=== PATIENT | male | born 1965 | race Caucasian/White ===

== ENCOUNTER 2017-05-12 15:17 | Emergency (ER) | payer SELFPAY ==
[~2017-05-12 15:17] MED LIST: ZITH250T PO
[2017-05-12] MEDS ORDERED: MORPHINE SULFATE 4 MG/ML INJ ONE (15:20)
[2017-05-12 15:24] VITALS: O2SAT 97
[2017-05-12 15:25] VITALS: O2SAT 97
[2017-05-12 15:39] LABS: AUTOMATED NEUTROPHIL # 9.4 TH/MM3 (1.8-7.7); BASOPHIL # 0.1 TH/MM3 (0-0.2); BASOPHIL % 0.5 % (0.0-2.0); EOSINOPHIL # 0.2 TH/MM3 (0-0.4); EOSINOPHIL % 1.6 % (0.0-4.0); HEMATOCRIT 42.6 % (39.0-51.0); HEMOGLOBIN 14.5 GM/DL (13.0-17.0); LYMPH % 13.6 % (9.0-44.0); LYMPHOCYTE # 1.7 TH/MM3 (1.0-4.8); MEAN CELL VOLUME 87.9 FL (80.0-100.0); MEAN CORPUSCULAR HEMOGLOBIN 29.9 PG (27.0-34.0); MEAN PLATELET VOLUME 6.9 FL (7.0-11.0); MONO % 8.8 % (0.0-8.0); MONOCYTE # 1.1 TH/MM3 (0-0.9); NEUT % 75.5 % (16.0-70.0); PLATELET COUNT 461 TH/MM3 (150-450); RED BLOOD COUNT 4.84 MIL/MM3 (4.50-5.90); RED CELL DISTRIBUTION WIDTH 14.1 % (11.6-17.2); WHITE BLOOD COUNT 12.4 TH/MM3 (4.0-11.0)
[2017-05-12] MEDS ORDERED: IOHEXOL 350 MG/ML 10 ML VIAL (for RAD DIAG) IVCONTRAST ONE (15:43)
--- NOTE | 2017-05-12 15:57 | RADRPT ---
EXAM DATE/TIME: 05/12/2017 15:31 [facility] COMPARISON: CHEST SINGLE AP, September 01, 2015, 13:25. INDICATIONS : Fell from ladder, Trauma alert MEDICAL HISTORY : None. SURGICAL HISTORY : None. ENCOUNTER: Initial ACUITY: 1 day PAIN SCORE: Non-responsive. LOCATION: Bilateral chest FINDINGS: The heart is normal. The pulmonary vascular pattern is normal. The lungs are clear. Old fractures of the right rib cage are stable. CONCLUSION: No acute cardiopulmonary disease. Dylan Joseph MD on May 12, 2017 at 15:54 Board Certified Radiologist. This report was verified electronically.
[2017-05-12] MEDS ORDERED: MORPHINE SULFATE 2 MG/ML INJ IV PUSH ONE ×2 (16:00)
[2017-05-12] MEDS ORDERED: MORPHINE SULFATE 4 MG/ML INJ IV PUSH ONE (16:00)
--- NOTE | 2017-05-12 16:17 | RADRPT ---
EXAM DATE/TIME: 05/12/2017 15:37 [facility] COMPARISON: CT THORAX W CONTRAST, August 18, 2015, 21:27. INDICATIONS : Trauma alert, fall from ladder. IV CONTRAST: 94 cc Omnipaque 350 (iohexol) IV ; Cumulative dose for multiple exams. RADIATION DOSE: 5.7 CTDIvol (mGy) ; Combined studies MEDICAL HISTORY : Non-responsive. SURGICAL HISTORY : Non-responsive. ENCOUNTER: Initial ACUITY: 1 day PAIN SCALE: Non-responsive LOCATION: Bilateral chest TECHNIQUE: Volumetric scanning of the chest was performed. Using automated exposure control and adjustment of t he mA and/or kV according to patient size, radiation dose was kept as low as reasonably achievable to obtain optimal diagnostic quality images. DICOM format image data is available electronically for review and comparison. Follow-up recommendations for detected pulmonary nodules are based at a minimum on nodule size and pa tient risk factors according to Fleischner Society Guidelines. FINDINGS: LUNGS: There is no consolidation or pneumothorax. No concerning pulmonary nodule is visualized. PLEURA: There is no pleural thickening or pleural effusion. MEDIASTINUM: The heart and great vessels demonstrate no acute abnormality. There is no mediastinal or hilar lymph adenopathy. AXILLAE: Within normal limits. No lymphadenopathy. SKELETAL: There are degenerative changes in the sternoclavicular joint. There old rib fractures on the right. I don't see displaced acute rib fracture. MISCELLANEOUS: The visualized upper abdominal organs demonstrate no acute abnormality. CONCLUSION: Negative for acute injury. Fili Gonzalez MD FACR on May 12, 2017 at 16:13 Board Certified Radiologist. This report was verified electronically.
--- NOTE | 2017-05-12 16:17 | RADRPT ---
EXAM DATE/TIME: 05/12/2017 15:33 [facility] COMPARISON: No previous studies available for comparison. INDICATIONS : Trauma alert, fall from ladder. RADIATION DOSE: 56.35 CTDIvol (mGy) MEDICAL HISTORY : Non-responsive. SURGICAL HISTORY : Non-responsive. ENCOUNTER: Initial ACUITY: 1 day PAIN SCALE: Non-responsive LOCATION: cranial TECHNIQUE: Multiple contiguous axial images were obtained of the head. Using automated exposure control and adj ustment of the mA and/or kV according to patient size, radiation dose was kept as low as reasonably a chievable to obtain optimal diagnostic quality images. DICOM format image data is available electro nically for review and comparison. FINDINGS: CEREBRUM: The ventricles are normal for age. No evidence of midline shift, mass lesion, hemorrhage or acute in farction. No extra-axial fluid collections are seen. POSTERIOR FOSSA: The cerebellum and brainstem are intact. The 4th ventricle is midline. The cerebellopontine angle i s unremarkable. EXTRACRANIAL: The visualized portion of the orbits is intact. Mild mucosal disease in the left maxillary sinus SKULL: The calvaria is intact. No evidence of skull fracture. CONCLUSION: No acute intracranial injury. Solitario Ornelas MD on May 12, 2017 at 15:52 Board Certified Radiologist. This report was verified electronically.
--- NOTE | 2017-05-12 16:18 | RADRPT ---
EXAM DATE/TIME: 05/12/2017 15:39 [facility] COMPARISON: CT ABDOMEN & PELVIS W CONTRAST, August 18, 2015, 21:27. INDICATIONS : Trauma alert, fall from ladder. IV CONTRAST: 94 cc Omnipaque 350 (iohexol) IV ; Cumulative dose for multiple exams. ORAL CONTRAST: No oral contrast ingested. RADIATION DOSE: 5.7 CTDIvol (mGy) ; Combined studies - Thorax/Abdomen/Pelvis MEDICAL HISTORY : Non-responsive. SURGICAL HISTORY : Non-responsive. ENCOUNTER: Initial ACUITY: 1 day PAIN SCALE: Non-responsive LOCATION: chest TECHNIQUE: Volumetric scanning of the abdomen and pelvis was performed. Using automated exposure control and ad justment of the mA and/or kV according to patient size, radiation dose was kept as low as reasonably achievable to obtain optimal diagnostic quality images. DICOM format image data is available electro nically for review and comparison. FINDINGS: LOWER LUNGS: The visualized lower lungs are clear. LIVER: Homogeneous density without lesion. There is no dilation of the biliary tree. No calcified gallston es. SPLEEN: Normal size without lesion. PANCREAS: Within normal limits. KIDNEYS: Normal in size and shape. There is no mass, stone or hydronephrosis. ADRENAL GLANDS: Within normal limits. VASCULAR: There is no aortic aneurysm. BOWEL/MESENTERY: The stomach, small bowel, and colon demonstrate no acute abnormality. There is no free intraperitone al air or fluid. ABDOMINAL WALL: Within normal limits. RETROPERITONEUM: There is no lymphadenopathy. BLADDER: No wall thickening or mass. REPRODUCTIVE: Within normal limits. INGUINAL: There is no lymphadenopathy or hernia. MUSCULOSKELETAL: . 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 No displaced fracture. CONCLUSION: Negative for acute rheumatic injury. Fili Gonzalez MD FACR on May 12, 2017 at 16:15 Board Certified Radiologist. This report was verified electronically.
[2017-05-12 16:21] VITALS: BP 172/94; PULSE 105; RESP 15; O2SAT 100
[2017-05-12] MEDS ORDERED: LIDOCAINE HCL 1% PF 30 ML VIAL INFIL ONE (16:30)
--- NOTE | 2017-05-12 16:37 | RADRPT ---
EXAM DATE/TIME: 05/12/2017 15:35 [facility] COMPARISON: No previous studies available for comparison. INDICATIONS : Trauma alert, fall from ladder. RADIATION DOSE: 31.12 CTDIvol (mGy) MEDICAL HISTORY : Non-responsive. SURGICAL HISTORY : Non-responsive. ENCOUNTER: Initial ACUITY: 1 day PAIN SCALE: Non-responsive LOCATION: neck TECHNIQUE: Volumetric scanning of the cervical spine was performed. Multiplanar reconstructions in the sagittal, coronal and oblique axial planes were performed. Using automated exposure control and adjustment o f the mA and/or kV according to patient size, radiation dose was kept as low as reasonably achievable to obtain optimal diagnostic quality images. DICOM format image data is available electronically f or review and comparison. FINDINGS: VERTEBRAE: Normal vertebral body height. ALIGNMENT: No evidence of subluxation. C2-C3: The bony spinal canal is normal in size. No evidence of disc bulge or herniation. The neural forami na are bilaterally patent. C3-C4: The bony spinal canal is normal in size. No evidence of disc bulge or herniation. The neural forami na are bilaterally patent. C4-C5: The bony spinal canal is normal in size. No evidence of disc bulge or herniation. The neural forami na are bilaterally patent. C5-C6: Mild spinal stenosis and bilateral foraminal narrowing is noted secondary to diffuse disc osteophyte complex, facet joint hypertrophy and uncovertebral joint spurring. No focal disc herniation is noted C6-C7: The bony spinal canal is normal in size. No evidence of disc bulge or herniation. Mild bilateral for aminal narrowing is noted bilaterally related to uncovertebral joint spurring and facet joint hypertr ophy bilaterally. C7-T1: The bony spinal canal is normal in size. No evidence of disc bulge or herniation. The neural forami na are bilaterally patent. CONCLUSION: 1. No acute fracture or prevertebral soft tissue swelling. 2. Mild spinal stenosis and bilateral foraminal narrowing at C5-6. 3. Mild bilateral foraminal narrowing at C6-7. Dylan Joseph MD on May 12, 2017 at 16:32 Board Certified Radiologist. This report was verified electronically.
--- NOTE | 2017-05-12 16:44 | RADRPT ---
EXAM DATE/TIME: 05/12/2017 15:31 [facility] COMPARISON: No previous studies available for comparison. INDICATIONS : Trauma alert, fell from a ladder. MEDICAL HISTORY : None. SURGICAL HISTORY : None. ENCOUNTER: Initial ACUITY: 1 day PAIN SCORE: Non-responsive. LOCATION: Bilateral pelvis FINDINGS: A single frontal view of the pelvis demonstrates no evidence of fracture. The bony pelvic ring is in tact. Bony mineralization is normal. The soft tissues are intact. CONCLUSION: Negative for fracture. CT scan is pending Fili Gonzalez MD FACR on May 12, 2017 at 16:41 Board Certified Radiologist. This report was verified electronically.
--- NOTE | 2017-05-12 16:58 | PD ---
Physical Exam Date Seen by Provider: May 12, 2017 Time Seen by Provider: 16:56 Data Data Last Documented VS Vital Signs Date Time Temp Pulse Resp B/P (MAP) Pulse Ox O2 Delivery O2 Flow Rate FiO2 05/12/17 16:21 105 15 172/94 (120) 100 Room Air 05/12/17 15:25 21 Orders Orders Morphine Inj (Morphine Inj) (05/12/17 15:20) I-Stat Profile (05/12/17 15:21) Complete Blood Count With Diff (05/12/17 15:21) Prothrombin Time / Inr (Pt) (05/12/17 15:21) Act Partial Throm Time (Ptt) (05/12/17 15:21) Type And Screen (05/12/17 15:21) Chest, Single Ap (05/12/17 15:21) Pelvis, Ap Only (Routine) (05/12/17 15:21) Ct Brain W/O Iv Contrast(Rout) (05/12/17 15:21) Ct Cerv Spine W/O Contrast (05/12/17 15:21) Ct Thorax/ Chest W Iv Contrast (05/12/17 15:21) Iv Access Insert/Monitor (05/12/17 15:21) Ecg Monitoring (05/12/17 15:21) Oximetry (05/12/17 15:21) Oxygen Administration (05/12/17 15:21) Ct Abd/Pel W Iv Contrast(Rout) (05/12/17 ) Iohexol 350 Inj (Omnipaque 350 Inj) (05/12/17 15:43) Morphine Inj (Morphine Inj) (05/12/17 16:00) Morphine Inj (Morphine Inj) (05/12/17 16:00) Morphine Inj (Morphine Inj) (05/12/17 16:00) Lidocaine Pf 1% Inj (Xylocaine-Mpf 1% In (05/12/17 16:30) Oxycodone-Acetamin 5-325 Mg (Percocet (05/12/17 17:00) Ketorolac Inj (Toradol Inj) (05/12/17 17:00) Labs Laboratory Tests Test 05/12/17 15:22 White Blood Count 12.4 TH/MM3 Red Blood Count 4.84 MIL/MM3 Hemoglobin 14.5 GM/DL Bedside Hemoglobin 14.6 G/DL Hematocrit 42.6 % Bedside Hematocrit 43.0 % Mean Corpuscular Volume 87.9 FL Mean Corpuscular Hemoglobin 29.9 PG Mean Corpuscular Hemoglobin Concent 34.0 % Red Cell Distribution Width 14.1 % Platelet Count 461 TH/MM3 Mean Platelet Volume 6.9 FL Neutrophils (%) (Auto) 75.5 % Lymphocytes (%) (Auto) 13.6 % Monocytes (%) (Auto) 8.8 % Eosinophils (%) (Auto) 1.6 % Basophils (%) (Auto) 0.5 % Neutrophils # (Auto) 9.4 TH/MM3 Lymphocytes # (Auto) 1.7 TH/MM3 Monocytes # (Auto) 1.1 TH/MM3 Eosinophils # (Auto) 0.2 TH/MM3 Basophils # (Auto) 0.1 TH/MM3 CBC Comment DIFF FINAL Differential Comment Prothrombin Time 10.0 SEC Prothromb Time International Ratio 1.0 RATIO Activated Partial Thromboplast Time 26.7 SEC Bedside Sodium 139 MMOL/L Bedside Potassium 3.6 MMOL/L Bedside Chloride 99 MMOL/L Bedside Blood Urea Nitrogen 9 MG/DL Bedside Creatinine 0.9 MG/DL Bedside Glucose 133 MG/DL [facility] Supervised Visit with LENY: No Narrative Course I was asked to evaluate this patient's scalp laceration. The patient was initially seen by Dr. Collins. Please see her note for full H& P. On my exam the patient is alert and oriented. There is a approximate 12 cm stellate laceration on the posterior scalp.. Laceration repair was performed. Please see my procedure note for details. Dr. Collins retains care of this patient. Please see her note for disposition. Procedures Procedure Narrative LACERATION LOCATION: Posterior scalp LENGTH: 12 cm stellate NUMBER OF STITCHES/LCAEY: 17 REPAIR: The laceration was infiltrated with 1% lidocaine. The wound was copiously irrigated and explored without evidence of foreign body, tendon injury or neurovascular injury. The wound was closed using surgical lacey. This was a single layer repair. Patient tolerated the procedure well. Clare Fountain May 12, 2017 16:58
[2017-05-12] MEDS ORDERED: oxyCODONE/ACETAMINOPHEN 5 MG/325 MG TAB PO ONE (17:00)
[2017-05-12] MEDS ORDERED: KETOROLAC TROMETHAMINE 30 MG/ML (IVP) VIAL IV PUSH ONE (17:00)
[2017-05-12 18:04] VITALS: BP 187/107
[2017-05-12] MEDS ORDERED: PERC5TAB12 PO (18:13)
--- NOTE | 2017-05-12 18:13 | PD ---
HPI Chief Complaint: Trauma (Alert) Time Seen by Provider: 15:21 Travel History International Travel<30 days: No Contact w/Intl Traveler<30days: No Traveled to known affect area: No History of Present Illness HPI Patient is a 51-year-old male who comes in after he fell 14 feet from a ladder just prior to arrival. He says he slid down and fell on his back and hit his head. He does report loss of consciousness. He complains of pain to his right shoulder. He denies any other pain. He denies any difficulty breathing, abdominal pain, nausea or vomiting. Movement makes his pain worse. Severity is moderate. PFSH Past Medical History Arthritis: No Autoimmune Disease: No Cancer: No Cardiovascular Problems: No Diminished Hearing: No Endocrine: No GERD: No Genitourinary: No Hiatal Hernia: No Immune Disorder: No Implanted Vascular Access Dvce: Yes Kidney Stones: No Musculoskeletal: Yes Neurologic: No Psychiatric: No Reproductive: No Respiratory: No Renal Failure: No Ulcer: No Past Surgical History Abdominal Surgery: Yes (umbilical hernia mess repair) Arteriovenous Shunt: No Body Medical Devices: umbilical mes Cardiac Surgery: No Ear Surgery: No Endocrine Surgery: No Eye Surgery: No Genitourinary Surgery: No Gynecologic Surgery: No Insulin Pump: No Joint Replacement: Yes (poly carbonate left knee cap) Oral Surgery: No Other Surgery: Yes (left knee implant, tonsilectomy, umbilical hernia mess implanted) Social History Alcohol Use: Yes (DAILY CROWN) Tobacco Use: Yes (CIGERS) Substance Use: No Allergies-Medications (Allergen,Severity, Reaction): Coded Allergies: No Known Allergies (Unverified Allergy, Unknown, 05/12/17) Reported Meds & Prescriptions Reported Meds & Active Scripts Active Review of Systems Except as stated in HPI: all other systems reviewed are Neg General / Constitutional: No: Fever, Chills Eyes: No: Blurred Vision HENT: Positive: Headaches Cardiovascular: No: Chest Pain or Discomfort Respiratory: No: Shortness of Breath Gastrointestinal: No: Nausea, Vomiting, Abdominal Pain Musculoskeletal: Positive: Pain Skin: Positive Other (Laceration) Neurologic: No: Weakness, Incontinence, Sensory Disturbance Physical Exam Narrative GENERAL: Awake and alert, no acute distress. SKIN: Focused skin assessment warm/dry. Stellate laceration to the occiput. Abrasions over the right scapula. HEAD: Atraumatic. Normocephalic. EYES: Pupils equal and round. No scleral icterus. Extraocular movements intact. ENT: Mucous membranes pink and moist. NECK: Trachea midline. No JVD. CARDIOVASCULAR: Regular rate and rhythm. No murmur appreciated. RESPIRATORY: No accessory muscle use. Clear to auscultation. Breath sounds equal bilaterally. GASTROINTESTINAL: Abdomen soft, non-tender, nondistended. MUSCULOSKELETAL: No obvious deformities. No clubbing. No cyanosis. No edema. Tender to palpation of the right scapula. No tenderness to palpation of the right humerus. No tenderness palpation of the pelvis or lower extremities. NEUROLOGICAL: Awake and alert. No obvious cranial nerve deficits. Motor grossly within normal limits. Normal speech. PSYCHIATRIC: Appropriate mood and affect; insight and judgment normal. Data Data Last Documented VS Vital Signs Date Time Temp Pulse Resp B/P (MAP) Pulse Ox O2 Delivery O2 Flow Rate FiO2 05/12/17 16:21 105 15 172/94 (120) 100 Room Air 05/12/17 15:25 21 Orders Orders Morphine Inj (Morphine Inj) (05/12/17 15:20) I-Stat Profile (05/12/17 15:21) Complete Blood Count With Diff (05/12/17 15:21) Prothrombin Time / Inr (Pt) (05/12/17 15:21) Act Partial Throm Time (Ptt) (05/12/17 15:21) Type And Screen (05/12/17 15:21) Chest, Single Ap (05/12/17 15:21) Pelvis, Ap Only (Routine) (05/12/17 15:21) Ct Brain W/O Iv Contrast(Rout) (05/12/17 15:21) Ct Cerv Spine W/O Contrast (05/12/17 15:21) Ct Thorax/ Chest W Iv Contrast (05/12/17 15:21) Iv Access Insert/Monitor (05/12/17 15:21) Ecg Monitoring (05/12/17 15:21) Oximetry (05/12/17 15:21) Oxygen Administration (05/12/17 15:21) Ct Abd/Pel W Iv Contrast(Rout) (05/12/17 ) Iohexol 350 Inj (Omnipaque 350 Inj) (05/12/17 15:43) Morphine Inj (Morphine Inj) (05/12/17 16:00) Morphine Inj (Morphine Inj) (05/12/17 16:00) Morphine Inj (Morphine Inj) (05/12/17 16:00) Lidocaine Pf 1% Inj (Xylocaine-Mpf 1% In (05/12/17 16:30) Oxycodone-Acetamin 5-325 Mg (Percocet (05/12/17 17:00) Ketorolac Inj (Toradol Inj) (05/12/17 17:00) Collar [place] (05/12/17 ) Labs Laboratory Tests Test 05/12/17 15:22 White Blood Count 12.4 TH/MM3 Red Blood Count 4.84 MIL/MM3 Hemoglobin 14.5 GM/DL Bedside Hemoglobin 14.6 G/DL Hematocrit 42.6 % Bedside Hematocrit 43.0 % Mean Corpuscular Volume 87.9 FL Mean Corpuscular Hemoglobin 29.9 PG Mean Corpuscular Hemoglobin Concent 34.0 % Red Cell Distribution Width 14.1 % Platelet Count 461 TH/MM3 Mean Platelet Volume 6.9 FL Neutrophils (%) (Auto) 75.5 % Lymphocytes (%) (Auto) 13.6 % Monocytes (%) (Auto) 8.8 % Eosinophils (%) (Auto) 1.6 % Basophils (%) (Auto) 0.5 % Neutrophils # (Auto) 9.4 TH/MM3 Lymphocytes # (Auto) 1.7 TH/MM3 Monocytes # (Auto) 1.1 TH/MM3 Eosinophils # (Auto) 0.2 TH/MM3 Basophils # (Auto) 0.1 TH/MM3 CBC Comment DIFF FINAL Differential Comment Prothrombin Time 10.0 SEC Prothromb Time International Ratio 1.0 RATIO Activated Partial Thromboplast Time 26.7 SEC Bedside Sodium 139 MMOL/L Bedside Potassium 3.6 MMOL/L Bedside Chloride 99 MMOL/L Bedside Blood Urea Nitrogen 9 MG/DL Bedside Creatinine 0.9 MG/DL Bedside Glucose 133 MG/DL [facility] Medical Screen Exam Complete: Yes Emergency Medical Condition: Yes Medical Record Reviewed: Yes Differential Diagnosis Scapular fracture versus rib fracture versus ICH Narrative Course Patient is a 51-year-old male who comes in after falling 14 feet from a ladder. Level 2 trauma alert was called. Exam shows stellate laceration to the head and abrasions to the right scapula. IV established, labs sent. Labs show no acute abnormalities. Patient taken to CT. CT head, C-spine, chest, abdomen and pelvis performed showed no acute abnormalities. There is no scapular fracture identified. Last 24 hours Impressions Pelvis X-Ray 05/12/17 1521 Signed Impressions: Service Date/Time: Friday, May 12, 2017 15:31 - CONCLUSION: Negative for fracture. CT scan is pending Fili Gonzalez MD FACR Head CT 05/12/17 1521 Signed Impressions: Service Date/Time: Friday, May 12, 2017 15:33 - CONCLUSION: No acute intracranial injury. Solitario Ornelas MD Chest X-Ray 05/12/17 152 Signed Impressions: Service Date/Time: Friday, May 12, 2017 15:31 - CONCLUSION: No acute cardiopulmonary disease. Dylan Joseph MD Chest CT 05/12/17 1521 Signed Impressions: Service Date/Time: Friday, May 12, 2017 15:37 - CONCLUSION: Negative for acute injury. Fili Gonzalez MD FACR Cervical Spine CT 05/12/17 152 Signed Impressions: Service Date/Time: Friday, May 12, 2017 15:35 - CONCLUSION: 1. No acute fracture or prevertebral soft tissue swelling. 2. Mild spinal stenosis and bilateral foraminal narrowing at C5-6. 3. Mild bilateral foraminal narrowing at C6-7. Dylan Joseph MD Abdomen/Pelvis CT 05/12/17 0000 Signed Impressions: Service Date/Time: Friday, May 12, 2017 15:39 - CONCLUSION: Negative for acute rheumatic injury. Fili Gonzalez MD FACR Patient given pain medicine. He will be discharged with prescription for Percocet. Advised to take ibuprofen as well as needed for pain. Advised follow -up with his doctor. Laceration was repaired by ADAMA Fountain. Advised to have his lacey removed in 5-7 days. Advised return anytime for any worsening symptoms. Diagnosis Diagnosis: Primary Impression: Fall Qualified Codes: W19.XXXA - Unspecified fall, initial encounter Additional Impressions: Trauma Pain in scapula Laceration of head Qualified Codes: S01.01XA - Laceration without foreign body of scalp, initial encounter Patient Instructions: Fall Prevention (ED), General Instructions, Laceration ( ED) Additional Instructions: Take pain medicine as needed. Apply ice to your shoulder. Return to the ED as needed for any worsening symptoms. You can wear a sling for comfort, but make sure you take it off and move your shoulder often to prevent frozen shoulder. Scripts Oxycodone-Acetaminophen (Percocet) 5-325 mg Tab 1 TAB PO Q6H Y for PAIN, #12 TAB 0 Refills Prov: Olivia Collins MD 05/12/17 Disposition: 01 DISCHARGE HOME Condition: Stable Olivia Collins MD May 12, 2017 18:13
== END 2017-05-12 18:31 | disposition home or self-care (01) ==
LOC: NEPE 15:17
DX: M25.519 Pain in unspecified shoulder (principal); S01.01XA Laceration without foreign body of scalp, initial encounter; S06.9X9A Unspecified intracranial injury with loss of consciousness of unspecified duration, initial encounter; F17.290 Nicotine dependence, other tobacco product, uncomplicated; W11.XXXA Fall on and from ladder, initial encounter
CPT/HCPCS: 12004; 70450; 71045; 71260; 72125; 72170; 74177; 80048; 85025; 85610; 85730; 86850; 86900; 86901; 96361; 96374; 96375; 99285; J1885; J2270; L0150; Q9967